=== PATIENT | male | born 1970 | race Two or more races ===

== ENCOUNTER 2019-10-05 20:33 | Emergency (ER) | payer OTHER, SELFPAY ==
[~2019-10-05] VITALS: Ht 157.5 cm; Wt 68.8 kg
[2019-10-05] MEDS ORDERED: HYDROcodone/APAP 5/325 TABLET PO ONE (21:30)
[2019-10-05] MEDS ORDERED: DIAZEPAM 5 MG TABLET PO ONE (21:30)
[2019-10-05] MEDS ORDERED: KETOROLAC 30 MG/1 ML IM ONE (21:30)
[2019-10-05] MEDS ORDERED: HYDROcodone/APAP 5/325 TABLET ONE (21:36)
[2019-10-05] MEDS ORDERED: KETOROLAC 60 MG/2 ML ONE (21:36)
[2019-10-05] MEDS ORDERED: DIAZEPAM 5 MG TABLET ONE (21:36)
[2019-10-05 22:14] VITALS: BP 134/74
== END 2019-10-05 22:17 | disposition home or self-care (01) ==
LOC: ED 21:45
DX: S39.011A Strain of muscle, fascia and tendon of abdomen, initial encounter (principal); R07.89 Other chest pain; F17.200 Nicotine dependence, unspecified, uncomplicated; Y04.0XXA Assault by unarmed brawl or fight, initial encounter; Y93.89 Activity, other specified; Y92.89 Other specified places as the place of occurrence of the external cause; Y99.8 Other external cause status
CPT/HCPCS: 96372; 99283; J1885